=== PATIENT | male | born 1960 | race Caucasian/White ===

== ENCOUNTER → 2019-04-25 | Outpatient (CLI) | payer OTHER ==
--- NOTE | 2019-04-25 16:18 | 2DMMODE ---
[facility] [place] [address] 2 D/M-MODE ECHOCARDIOGRAM Name: CLARKE ZUNIGA Room #: REG CL [facility]reidaNereida#: [id number] ������������� Admission: 04/25/19 ������������� Attend Phys: Sean Maldonado, Discharge: ��� ������������� ��� Date of : 58 Date of Service: 04/25/19 1618 �� Report #: [id number] �������� ��������������������������������������������[id number] THIS REPORT FOR: //name// APPROVED REPORT Study performed: 04/25/2019 14:08:10 EXAM: Comprehensive 2D, Doppler, and color-flow Echocardiogram Patient Location: Out-Patient Status: routine BSA: 2.53 HR: 114 bpm BP: 134/86 mmHg Rhythm: Atrial Fibrillation Other Information Study Quality: Adequate Indications Chronic Diastolic Heart Failure. HX; Afib 2D Dimensions RVDd: 46.85 mm IVSd: 14.96 (7-11mm) LVOT Diam: 22.48 (18-24mm) LVDd: 51.47 mm PWd: 12.21 (7-11mm) Ascending Ao: 34.15 (22-36mm) LVDs: 38.67 (25-40mm) Aortic Root: 36.00 mm Volumes Left Atrial Volume (Systole) Single Plane 4CH: 105.83 mL Single Plane 2CH: 103.33 mL LA ESV Index: 47.00 mL/m2 Aortic Valve AoV Peak Reilly.: 1.23 m/s AO Peak Gr.: 6.12 mmHg LVOT Max P.08 mmHg LVOT Max V: 0.72 m/s SYDNEE Vmax: 2.31 cm2 Mitral Valve MV Decel. Time: 151.70 ms MV E Max Reilly.: 1.10 m/s [facility] [address] [place] [address] 2 D/M-MODE ECHOCARDIOGRAM Name: CLARKE ZUNIGA Room #: [facility]#: [id number] ������������� Admission: 04/25/19 ������������� Attend Phys: Sean Maldonado, Discharge: ��� ������������� ��� Date of : 58 Date of Service: 04/25/19 1618 �� Report #: [id number] �������� ��������������������������������������������[id number] Pulmonary Valve PV Peak Reilly.: 0.80 m/s PV Peak Gr.: 2.65 mmHg Tricuspid Valve TR Peak Reilly.: 2.68 m/s RAP Estimate: 5.00 mmHg TR Peak Gr.: 28.80 mmHg PA Pressure: 34.00 mmHg Left Ventricle The left ventricle is normal size. There is normal LV segmental wall motion. Mild concentric left ventricular hypertrophy. The left ventricular systolic function is normal. LVEF is 55-60%. This study is not technically sufficient to allow evaluation of the LV diastolic function due to atrial fibrillation. Right Ventricle The right ventricle is normal size. The right ventricular systolic function is normal. Atria Left atrium is severely dilated. Right atrium is moderately dilated. Aortic Valve The aortic valve is normal in structure. No aortic regurgitation is present. There is no aortic valvular stenosis. Mitral Valve The mitral valve is normal in structure. Mild mitral regurgitation. No evidence of mitral valve stenosis. Tricuspid Valve The tricuspid valve is normal in structure. Mild tricuspid regurgitation. Estimated PAP is 35mmHg. Pulmonic Valve Pulmonic valve is not well visualized. Trace pulmonic regurgitation. Great Vessels The aortic root is normal in size. The ascending aorta is normal in size. IVC is normal in size and collapses >50% with inspiration. Pericardium There is no pericardial effusion. [facility] [place] [address] 2 D/M-MODE ECHOCARDIOGRAM Name: CLARKE ZUNIGA Room #: REG CL [facility]#: [id number] ������������� Admission: 04/25/19 ������������� Attend Phys: Sean Maldonado, Discharge: ��� ������������� ��� Date of : 58 Date of Service: 04/25/198 �� Report #: [id number] �������� ��������������������������������������������[id number] <Conclusion> The left ventricular systolic function is normal. There is normal LV segmental wall motion. LVEF is 55-60%. Both atria are dilated. The aortic valve is normal in structure. No regurgitation or stenosis. The mitral valve is normal in structure. Mild mitral regurgitation. Mild tricuspid regurgitation. Estimated pulmonary artery pressure of 35mmHg. There is no pericardial effusion. ��������������������������������������������� <ELECTRONICALLY SIGNED> ���������������������������������������� By: Sean Maldonado MD, [facility] ��������������������������������������������� 04/25/19 1618 17 17 Sean Maldonado MD, FAC /INF
== END ==
LOC: CV 11:28
DX: I08.1 Rheumatic disorders of both mitral and tricuspid valves (principal); I50.32 Chronic diastolic (congestive) heart failure; I48.91 Unspecified atrial fibrillation

== ENCOUNTER → 2021-07-31 | Outpatient (CLI) | payer OTHER | LOC: SJCVCIMAG 10:52 | PROVIDERS: ATTEND Internal Medicine | DX: I08.1 Rheumatic disorders of both mitral and tricuspid valves (principal); M79.606 Pain in leg, unspecified; I73.9 Peripheral vascular disease, unspecified ==